=== PATIENT | male | born 1985 | race Caucasian/White ===

== ENCOUNTER 2018-08-10 20:33 | Emergency (ER) | payer SELFPAY ==
[~2018-08-10] VITALS: Ht 190.5 cm; Wt 105.6 kg
--- NOTE | 2018-08-10 22:06 | NUR ---
PT TO US
[2018-08-10] MEDS ORDERED: HYDROcodone/APAP 5/325 TABLET ONE (22:17)
--- NOTE | 2018-08-10 22:29 | NUR ---
PT MEDICATED FOR PAIN
[2018-08-10] MEDS ORDERED: HYDROcodone/APAP 5/325 TABLET PO ONE (22:30)
[2018-08-10 23:00] VITALS: BP 145/89
--- NOTE | 2018-08-10 23:17 | NUR ---
Patient given discharge instructions and they have confirmed that they understand the instructions.
== END 2018-08-10 23:21 | disposition home or self-care (01) ==
LOC: ED 22:50
DX: S82.402A Unspecified fracture of shaft of left fibula, initial encounter for closed fracture (principal); X58.XXXA Exposure to other specified factors, initial encounter; Y93.89 Activity, other specified; Y92.89 Other specified places as the place of occurrence of the external cause; Y99.8 Other external cause status
CPT/HCPCS: 29515; 99284

== ENCOUNTER 2018-08-26 20:41 | Emergency (ER) | payer SELFPAY ==
[~2018-08-26] VITALS: Ht 190.5 cm; Wt 101.1 kg
[2018-08-26 20:48] VITALS: BP 151/94
[2018-08-26] MEDS ORDERED: AZITHROMYCIN 250 MG TABLET PO ONE (21:00)
[2018-08-26] MEDS ORDERED: CEFTRIAXONE 250 MG IM ONE (21:00)
--- NOTE | 2018-08-26 21:17 | NUR ---
NOT IN LOBBY WHEN CALLED FOR ROOM.
--- NOTE | 2018-08-26 22:03 | NUR ---
PILATES INSTRUCTOR: MARIO COLLECTED AND SENT FROM TRIAGE.
[2018-08-26] MEDS ORDERED: CEFTRIAXONE 250 MG ONE (22:34)
[2018-08-26] MEDS ORDERED: AZITHROMYCIN 250 MG TABLET ONE (22:35)
== END 2018-08-26 23:21 | disposition home or self-care (01) ==
LOC: ED 22:45
DX: A74.9 Chlamydial infection, unspecified (principal); A54.09 Other gonococcal infection of lower genitourinary tract; A74.89 Other chlamydial diseases
CPT/HCPCS: 87491; 87591; 96372; 99283; J0696

== ENCOUNTER 2018-09-06 18:17 | Emergency (ER) | payer SELFPAY ==
[~2018-09-06] VITALS: Ht 190.5 cm; Wt 104.5 kg
[2018-09-06 18:22] VITALS: BP 164/110
[2018-09-06] MEDS ORDERED: AZITHROMYCIN 250 MG TABLET PO ONE (18:30)
[2018-09-06] MEDS ORDERED: CEFTRIAXONE 250 MG IM ONE (18:30)
[2018-09-06 19:19] LABS: CULTURE INDICATED? NO; MICROSCOPIC NOT IND
--- NOTE | 2018-09-06 19:23 | NUR ---
Patient/Caregiver given discharge instructions and they have confirmed that they understand the instructions. Patient ambulatory with steady gait.
== END 2018-09-06 19:24 | disposition home or self-care (01) ==
LOC: ED 19:10
DX: A56.8 Sexually transmitted chlamydial infection of other sites (principal); A54.9 Gonococcal infection, unspecified; L03.031 Cellulitis of right toe; F17.200 Nicotine dependence, unspecified, uncomplicated; I10 Essential (primary) hypertension
CPT/HCPCS: 81003; 87491; 87591; 99283

== ENCOUNTER 2019-01-08 09:33 | Emergency (ER) | payer OTHER ==
[~2019-01-08] VITALS: Ht 190.5 cm; Wt 105.0 kg
--- NOTE | 2019-01-08 09:39 | NUR ---
SEE TRIAGE NOTE. PT PLACED ON BP CUFF, PULSE OX. PT STATES HX OF HTN BUT DOESN'T TAKE MEDS. PT REPORTS OF ALCOHOL AND METH USE, LAST TAKEN BEFORE INCARCERATION 10/2018. PT COOPERATIVE WITH CARE, ERP IN TO SEE PT. GUARD AT BS.
[2019-01-08 10:19] LABS: BASOPHILS # (AUTO) 0.04 x10^3/uL (0-0.1); BASOPHILS % (AUTO) 1 % (0-1); EOSINOPHILS # (AUTO) 0.26 x10^3/uL (0-0.4); EOSINOPHILS % (AUTO) 4 % (1-7); LYMPHOCYTES # (AUTO) 2.01 x10^3/uL (1-3.4); LYMPHOCYTES % (AUTO) 31 % (22-44); MD NO; MEAN CORPUSCULAR HEMOGLOBIN 29.9 pg (27.5-34.5); MEAN CORPUSCULAR HGB CONC 33.6 g/dL (33.2-36.2); MEAN CORPUSCULAR VOLUME 88.9 fL (81-97); MEAN PLATELET VOLUME 8.7 fL (7.4-10.4); MONOCYTES # (AUTO) 0.47 x10^3/uL (0.2-0.8); MONOCYTES % (AUTO) 7 % (2-9); NEUTROPHILS # (AUTO) 3.79 x10^3/uL (1.8-6.8); NEUTROPHILS % (AUTO) 58 % (42-75); PLATELET COUNT 176 x10^3/uL (130-400); RED CELL DISTRIBUTION WIDTH 13.5 % (9.4-14.8)
[2019-01-08 10:32] LABS: ALBUMIN 3.9 g/dL (3.4-5.0)
[2019-01-08 10:35] LABS: ALANINE AMINOTRANSFERASE 206 U/L (12-78); ALKALINE PHOSPHATASE 101 U/L (45-117); BILIRUBIN,TOTAL 0.5 mg/dL (0.2-1.0); CREATININE 0.96 mg/dL (0.7-1.3); TOTAL PROTEIN 7.7 g/dL (6.4-8.2)
[2019-01-08 10:36] LABS: ANION GAP 6 mmol/L (5-15); CHLORIDE 109 mmol/L (98-107)
--- NOTE | 2019-01-08 11:22 | NUR ---
IV DRESSING APPLIED. READY FOR CT
[2019-01-08] MEDS ORDERED: OMNIPAQUE 350 MG/ML, 100ML BOTTLE ONE (11:53)
[2019-01-08 12:28] VITALS: BP 131/85
--- NOTE | 2019-01-08 12:29 | NUR ---
NEW IV PLACED IN CT. PT BACK IN ROOM. RESTING COMFORTABLE W SALES/MARKETING AT BEDSIDE
--- NOTE | 2019-01-08 13:24 | NUR ---
Patient/Caregiver given discharge instructions and they have confirmed that they understand the instructions. Patient ambulatory with steady gait.
== END 2019-01-08 13:26 | disposition home or self-care (01) ==
LOC: ED 09:51
DX: K40.91 Unilateral inguinal hernia, without obstruction or gangrene, recurrent (principal); I10 Essential (primary) hypertension
CPT/HCPCS: 36415; 74177; 80053; 83605; 85025; 99284; Q9967

== ENCOUNTER 2020-04-09 08:53 | Inpatient (IN) | payer MEDICAID ==
[~2020-04-09] VITALS: Ht 190.5 cm; Wt 103.3 kg
--- NOTE | 2020-04-09 09:46 | NUR ---
PT AMBULATORY TO ROOM FROM LOBBY, C/O RIGHT HAND PAINAND SWELLING. PT STATES HE ORIGINALY INJURED THE HAND "ON SOMEONES TOOTH" APPROX 1 MO AGO/ INCREASED SWELLING, PAIN, REDNESS FOR PAST THEE DAYS. ABCESS NOTD TO FIFTH PROX KNUCKLE. DR FRANKLIN AT BEDSIDE, PT ASSESSMENT, POC DISCUSSED AND QUESTIONS ANSWERED.
[2020-04-09] MEDS ORDERED: SODIUM CHLORIDE FLUSH 10ML SYR IVF ONE (10:00)
[2020-04-09] MEDS ORDERED: AMPICILLIN/SULBACTAM 3 GM in SODIUM CHLORIDE 0.9% 100 ML IV ONE (10:00)
[2020-04-09] MEDS ORDERED: SODIUM CHLORIDE 0.9% 1,000ML IVBOLUS ONE (10:00)
[2020-04-09] MEDS ORDERED: VANCOMYCIN PER PHARMACY MC ONE (10:00)
[2020-04-09 10:28] LABS: BASOPHILS % (AUTO) 1 % (0-1); EOSINOPHILS % (AUTO) 2 % (1-7); LYMPHOCYTES % (AUTO) 18 % (22-44); MEAN CORPUSCULAR HEMOGLOBIN 30.4 pg (27.5-34.5); MEAN CORPUSCULAR HGB CONC 33.5 g/dL (33.2-36.2); MEAN PLATELET VOLUME 8.2 fL (7.4-10.4); MONOCYTES % (AUTO) 7 % (2-9); NEUTROPHILS % (AUTO) 72 % (42-75); PLATELET COUNT 252 x10^3/uL (130-400); RED BLOOD COUNT 5.37 x10^6/uL (4.38-5.82); RED CELL DISTRIBUTION WIDTH 14.2 % (9.4-14.8)
[2020-04-09] MEDS ORDERED: VANCOMYCIN 2,400 MG in SODIUM CHLORIDE 0.9% 500 ML IV ONE (10:30)
[2020-04-09 10:37] LABS: INTERNATIONAL NORMALIZED RATIO 0.97 (0.93-1.1); PROTHROMBIN TIME 10.3 Seconds (9.6-11.5)
[2020-04-09 10:39] LABS: ALANINE AMINOTRANSFERASE 78 U/L (12-78); ALBUMIN 3.8 g/dL (3.4-5.0); ANION GAP 7 mmol/L (5-15); CALCIUM 9.2 mg/dL (8.5-10.1); CHLORIDE 105 mmol/L (98-107); CREATININE 1.08 mg/dL (0.7-1.3)
[2020-04-09 10:42] LABS: ALKALINE PHOSPHATASE 123 U/L (45-117); BILIRUBIN,TOTAL 0.5 mg/dL (0.2-1.0); MD NO; TOTAL PROTEIN 8.2 g/dL (6.4-8.2)
[2020-04-09] MEDS ORDERED: DIPH,PERTUSS(ACELL),TET VAC/PF 0.5 ML IM-VACC ONE ×2 (11:30→11:34)
[2020-04-09 11:44] LABS: HCT (SEDRATE) 48.7 % (39.2-51.8)
--- NOTE | 2020-04-09 11:56 | NUR ---
DR PUENTES AT BEDSIDE. PLAN FOR SURGERY TODAY AT 1800 DISCUSSED AND QUESTIONS ANSWERED.
[2020-04-09] MEDS ORDERED: KETOROLAC 30 MG/1 ML IM PRN (12:30)
[2020-04-09] MEDS ORDERED: LABETALOL 5MG/ML, 20ML IVPush PRN (12:30)
[2020-04-09] MEDS ORDERED: ONDANSETRON 2MG/ML, 2ML IVPush PRN (12:30)
[2020-04-09] MEDS: MULTIVITAMIN 1 TABLET PO SCH (12:30)
[2020-04-09] MEDS ORDERED: morphine SULFATE 10 MG/ML, 1ML IVPush PRN (12:30)
[2020-04-09] MEDS ORDERED: VANCOMYCIN PER PHARMACY MC PRN (12:30)
[2020-04-09] MEDS ORDERED: PROMETHAZINE 25 MG/ML, 1ML IM PRN (12:30)
[2020-04-09] MEDS ORDERED: ACETAMINOPHEN 325 MG TABLET PO PRN ×2 (12:30→16:30)
[2020-04-09] MEDS: FOLIC ACID 1 MG TABLET PO SCH (12:30)
[2020-04-09] MEDS ORDERED: THIAMINE 100MG TABLET ONE (13:29)
[2020-04-09] MEDS ORDERED: ONDANSETRON 2MG/ML, 2ML ONE ×2 (13:29→16:01)
[2020-04-09] MEDS ORDERED: PIPERACILLIN/TAZO/PMX 3.375GM 50 ML ONE (13:29)
[2020-04-09] MEDS ORDERED: HEPARIN 5,000 UNITS/ML, 1ML ONE (13:29)
[2020-04-09] MEDS ORDERED: MORPHINE SULFATE 4 MG/ML, 1ML ONE (13:29)
[2020-04-09] MEDS: HEPARIN 5,000 UNITS/ML, 1ML SQ SCH ×2 (13:33→20:30)
[2020-04-09] MEDS: SODIUM CHLORIDE 0.9% 1,000 ML IV SCH ×2 (13:39→16:53)
[2020-04-09] MEDS: PIPERACILLIN/TAZO/PMX 3.375GM 50 ML IV SCH ×2 (13:43→20:21)
[2020-04-09] MEDS: THIAMINE 100MG TABLET PO SCH (13:48)
--- NOTE | 2020-04-09 13:49 | NUR ---
PT MED NOTED FOR PAIN. IVF INFUSING W/O DIFFICULTY. PT IS NPO BUT I DID ADMIN THIAMINE PO WITH 3OML OF WATER. PT IS HEAVY DRINKER, DRINKS 1 - 1 1/2 PINTS OF HARD LIQUOR/DAY.
[2020-04-09] MEDS ORDERED: CHLORHEXIDINE 15 ML UDC ONE (15:20)
[2020-04-09] MEDS ORDERED: CHLORHEXIDINE 15 ML UDC MM ONE (15:30)
[2020-04-09] MEDS ORDERED: LACTATED RINGERS 1,000 ML IV SCH (15:30)
[2020-04-09] MEDS ORDERED: LIDOCAINE-MPF 1%, 2ML ONE (15:46)
[2020-04-09 15:48] LABS: AMPHETAMINE SCREEN, URINE Positive (Negative); BARBITURATE SCREEN, URINE Negative (Negative); BENZODIAZEPINE SCREEN, URINE Negative (Negative); CANNABINOID SCREEN, URINE Negative (Negative); COCAINE SCREEN, URINE Negative (Negative); METHADONE SCREEN, URINE Negative (Negative); OPIATE SCREEN, URINE Positive (Negative)
[2020-04-09] MEDS ORDERED: ROCURONIUM 10MG/ML,5ML ONE (16:01)
[2020-04-09] MEDS ORDERED: FENTANYL PF 250 MCG/5ML ONE (16:01)
[2020-04-09] MEDS ORDERED: SUCCINYLCHOLINE 20 MG/ML, 10ML ONE (16:01)
[2020-04-09] MEDS ORDERED: PROPOFOL 10 MG/ML, 20ML ONE (16:01)
[2020-04-09] MEDS ORDERED: DEXAMETHASONE 4 MG/ML, 1ML ONE (16:01)
[2020-04-09] MEDS ORDERED: BUPIVACAINE/PF 0.25% INFIL ONE (16:10)
[2020-04-09] MEDS ORDERED: BUPIVACAINE/PF 0.25% ONE (16:13)
[2020-04-09] MEDS ORDERED: BUPIVACAINE/PF 0.5% ONE (16:13)
[2020-04-09] MEDS ORDERED: OXYcodone 5 MG/5 ML ORAL.SOL UDC PO PRN (16:30)
[2020-04-09] MEDS ORDERED: ALBUTEROL SULFATE 2.5 MG/3 ML NPPB PRN (16:30)
[2020-04-09] MEDS ORDERED: FENTANYL PF 100 MCG/2ML IV PRN (16:30)
[2020-04-09] MEDS ORDERED: MEPERIDINE/PF 25MG/0.5ML IVPush PRN (16:30)
[2020-04-09] MEDS ORDERED: LABETALOL 5MG/ML, 20ML IV PRN (16:30)
[2020-04-09] MEDS ORDERED: LORazepam 2 MG/ML, 1ML IVPush PRN (16:30)
[2020-04-09] MEDS ORDERED: PROMETHAZINE 25 MG/ML, 1ML IVPush PRN (16:30)
[2020-04-09] MEDS ORDERED: HYDROmorphone 1 MG/ML, 1ML INJ IVPush PRN (16:30)
[2020-04-09] MEDS ORDERED: VANCOMYCIN 2,000 MG in SODIUM CHLORIDE 0.9% 500 ML IV SCH (17:00)
[2020-04-09] MEDS ORDERED: PHARMACOKINETIC MONITORING MC PRN (17:00)
[2020-04-09] MEDS ORDERED: hydrALAzine 20 MG/ML, 1ML ONE (17:03)
[2020-04-09] MEDS ORDERED: OXYcodone 5 MG/5 ML ORAL.SOL UDC ONE (17:04)
[2020-04-09] MEDS: hydrALAzine 20 MG/ML, 1ML IVPush PRN (17:07)
[2020-04-09 18:40] VITALS: BP 146/91
[2020-04-09] MEDS: OXYcodone IR 5MG TABLET PO PRN (20:59)
[2020-04-09] MEDS: NICOTINE 21 MG/24 HR PATCH.TD24 TD SCH (20:59)
[2020-04-09 23:50] VITALS: BP 152/81
[2020-04-10] MEDS: VANCOMYCIN 2,000 MG in SODIUM CHLORIDE 0.9% 500 ML IV SCH ×2 (00:04→12:31)
[2020-04-10 02:53] VITALS: BP 160/113
[2020-04-10] MEDS: hydrALAzine 20 MG/ML, 1ML IVPush PRN (02:54)
[2020-04-10] MEDS: PIPERACILLIN/TAZO/PMX 3.375GM 50 ML IV SCH ×4 (02:54→21:58)
[2020-04-10] MEDS: HEPARIN 5,000 UNITS/ML, 1ML SQ SCH ×3 (04:30→21:59)
[2020-04-10 05:11] LABS: BASOPHILS % (AUTO) 0 % (0-1); EOSINOPHILS % (AUTO) 0 % (1-7); LYMPHOCYTES % (AUTO) 9 % (22-44); MEAN CORPUSCULAR HEMOGLOBIN 30.3 pg (27.5-34.5); MEAN CORPUSCULAR HGB CONC 33.3 g/dL (33.2-36.2); MEAN PLATELET VOLUME 8.7 fL (7.4-10.4); MONOCYTES % (AUTO) 4 % (2-9); NEUTROPHILS % (AUTO) 86 % (42-75); PLATELET COUNT 272 x10^3/uL (130-400); RED BLOOD COUNT 5.35 x10^6/uL (4.38-5.82); RED CELL DISTRIBUTION WIDTH 14.7 % (9.4-14.8)
[2020-04-10 05:19] LABS: MD NO
[2020-04-10 05:21] LABS: ALANINE AMINOTRANSFERASE 63 U/L (12-78); ALBUMIN 3.1 g/dL (3.4-5.0); ANION GAP 6 mmol/L (5-15); CALCIUM 8.3 mg/dL (8.5-10.1); CHLORIDE 106 mmol/L (98-107); CREATININE 1.13 mg/dL (0.7-1.3)
[2020-04-10 05:24] LABS: ALKALINE PHOSPHATASE 113 U/L (45-117); BILIRUBIN,TOTAL 0.6 mg/dL (0.2-1.0); TOTAL PROTEIN 7.2 g/dL (6.4-8.2)
[2020-04-10 08:40] VITALS: BP 143/79
[2020-04-10] MEDS: MULTIVITAMIN 1 TABLET PO SCH (08:42)
[2020-04-10] MEDS: OXYcodone IR 5MG TABLET PO PRN ×2 (08:42→12:31)
[2020-04-10] MEDS: THIAMINE 100MG TABLET PO SCH (08:42)
[2020-04-10] MEDS: SODIUM CHLORIDE 0.9% 1,000 ML IV SCH (08:43)
[2020-04-10] MEDS: FOLIC ACID 1 MG TABLET PO SCH (08:57)
[2020-04-10] MEDS ORDERED: NICOTINE 21 MG/24 HR PATCH.TD24 TD SCH (09:00)
[2020-04-10 13:15] VITALS: BP 147/80
[2020-04-10 20:24] VITALS: BP 133/82
[2020-04-10] MEDS: NICOTINE 21 MG/24 HR PATCH.TD24 TD SCH (21:59)
[2020-04-11] MEDS: VANCOMYCIN 2,000 MG in SODIUM CHLORIDE 0.9% 500 ML IV SCH (00:36)
[2020-04-11 01:21] VITALS: BP 131/84
[2020-04-11] MEDS: PIPERACILLIN/TAZO/PMX 3.375GM 50 ML IV SCH ×4 (04:29→23:07)
[2020-04-11] MEDS: HEPARIN 5,000 UNITS/ML, 1ML SQ SCH ×3 (04:39→22:23)
[2020-04-11 05:28] LABS: ALBUMIN 2.5 g/dL (3.4-5.0); ANION GAP 5 mmol/L (5-15); CHLORIDE 108 mmol/L (98-107)
[2020-04-11 05:32] LABS: BASOPHILS % (AUTO) 1 % (0-1); EOSINOPHILS % (AUTO) 4 % (1-7); LYMPHOCYTES % (AUTO) 39 % (22-44); MEAN CORPUSCULAR HEMOGLOBIN 30.1 pg (27.5-34.5); MEAN CORPUSCULAR HGB CONC 32.7 g/dL (33.2-36.2); MEAN PLATELET VOLUME 8.3 fL (7.4-10.4); MONOCYTES % (AUTO) 6 % (2-9); NEUTROPHILS % (AUTO) 50 % (42-75); PLATELET COUNT 228 x10^3/uL (130-400); RED BLOOD COUNT 5.04 x10^6/uL (4.38-5.82); RED CELL DISTRIBUTION WIDTH 14.7 % (9.4-14.8)
[2020-04-11 05:33] LABS: ALANINE AMINOTRANSFERASE 48 U/L (12-78); ALKALINE PHOSPHATASE 83 U/L (45-117); BILIRUBIN,TOTAL 0.2 mg/dL (0.2-1.0); CREATININE 0.78 mg/dL (0.7-1.3); TOTAL PROTEIN 6.1 g/dL (6.4-8.2)
[2020-04-11 05:44] LABS: MD NO
[2020-04-11 06:19] VITALS: BP 141/89
[2020-04-11] MEDS: FOLIC ACID 1 MG TABLET PO SCH (09:24)
[2020-04-11] MEDS: THIAMINE 100MG TABLET PO SCH (09:24)
[2020-04-11] MEDS: AMLODIPINE 10 MG TAB PO SCH (09:25)
[2020-04-11] MEDS: MULTIVITAMIN 1 TABLET PO SCH (09:25)
[2020-04-11 12:35] VITALS: BP 156/81
[2020-04-11] MEDS: VANCOMYCIN 2,200 MG in SODIUM CHLORIDE 0.9% 500 ML IV SCH (15:12)
[2020-04-11 20:17] VITALS: BP 159/79
[2020-04-11] MEDS: NICOTINE 21 MG/24 HR PATCH.TD24 TD SCH (22:22)
[2020-04-12 01:55] VITALS: BP 150/96
[2020-04-12] MEDS: VANCOMYCIN 2,200 MG in SODIUM CHLORIDE 0.9% 500 ML IV SCH ×2 (03:20→15:30)
[2020-04-12] MEDS: PIPERACILLIN/TAZO/PMX 3.375GM 50 ML IV SCH (06:02)
[2020-04-12] MEDS: HEPARIN 5,000 UNITS/ML, 1ML SQ SCH ×3 (06:02→20:53)
[2020-04-12] MEDS: AMLODIPINE 10 MG TAB PO SCH (08:10)
[2020-04-12] MEDS: FOLIC ACID 1 MG TABLET PO SCH (08:11)
[2020-04-12] MEDS: MULTIVITAMIN 1 TABLET PO SCH (08:11)
[2020-04-12] MEDS: THIAMINE 100MG TABLET PO SCH (08:11)
[2020-04-12 08:33] VITALS: BP 139/82
[2020-04-12 12:52] VITALS: BP 144/89
[2020-04-12 19:38] VITALS: BP 147/99
[2020-04-12] MEDS: NICOTINE 21 MG/24 HR PATCH.TD24 TD SCH (20:54)
[2020-04-13 01:57] VITALS: BP 149/96
[2020-04-13] MEDS: VANCOMYCIN 2,200 MG in SODIUM CHLORIDE 0.9% 500 ML IV SCH ×2 (03:06→15:08)
[2020-04-13] MEDS: HEPARIN 5,000 UNITS/ML, 1ML SQ SCH ×3 (06:00→21:41)
[2020-04-13 07:44] VITALS: BP 145/91
[2020-04-13] MEDS: THIAMINE 100MG TABLET PO SCH (08:41)
[2020-04-13] MEDS: AMLODIPINE 10 MG TAB PO SCH (08:41)
[2020-04-13] MEDS: MULTIVITAMIN 1 TABLET PO SCH (08:41)
[2020-04-13] MEDS: FOLIC ACID 1 MG TABLET PO SCH (08:41)
[2020-04-13 13:15] VITALS: BP 129/85
[2020-04-13 19:21] VITALS: BP 121/74
[2020-04-13] MEDS: NICOTINE 21 MG/24 HR PATCH.TD24 TD SCH (21:40)
[2020-04-14 01:47] VITALS: BP 122/84
[2020-04-14] MEDS: VANCOMYCIN 2,200 MG in SODIUM CHLORIDE 0.9% 500 ML IV SCH ×2 (02:59→14:54)
[2020-04-14] MEDS: HEPARIN 5,000 UNITS/ML, 1ML SQ SCH ×3 (05:36→21:13)
[2020-04-14] MEDS: MULTIVITAMIN 1 TABLET PO SCH (08:03)
[2020-04-14] MEDS: AMLODIPINE 10 MG TAB PO SCH (08:03)
[2020-04-14] MEDS: THIAMINE 100MG TABLET PO SCH (08:03)
[2020-04-14] MEDS: FOLIC ACID 1 MG TABLET PO SCH (08:03)
[2020-04-14 09:35] VITALS: BP 128/73
[2020-04-14 14:08] VITALS: BP 131/83
[2020-04-14 18:45] VITALS: BP 124/77
[2020-04-14] MEDS: NICOTINE 21 MG/24 HR PATCH.TD24 TD SCH (21:14)
[2020-04-15 01:28] VITALS: BP 129/83
[2020-04-15] MEDS: VANCOMYCIN 2,200 MG in SODIUM CHLORIDE 0.9% 500 ML IV SCH ×2 (03:25→14:29)
[2020-04-15] MEDS: HEPARIN 5,000 UNITS/ML, 1ML SQ SCH ×3 (05:48→22:29)
[2020-04-15 07:44] VITALS: BP 123/82
[2020-04-15] MEDS: AMLODIPINE 10 MG TAB PO SCH (08:34)
[2020-04-15] MEDS: MULTIVITAMIN 1 TABLET PO SCH (08:34)
[2020-04-15] MEDS: FOLIC ACID 1 MG TABLET PO SCH (08:34)
[2020-04-15] MEDS: THIAMINE 100MG TABLET PO SCH (08:34)
[2020-04-15 12:51] VITALS: BP 124/79
[2020-04-15 20:05] VITALS: BP 142/91
[2020-04-15] MEDS: NICOTINE 21 MG/24 HR PATCH.TD24 TD SCH (22:28)
[2020-04-15] MEDS ORDERED: OMNIPAQUE 350 MG/ML, 100ML BOTTLE ONE (23:10)
[2020-04-16 02:07] VITALS: BP 121/74
[2020-04-16] MEDS: VANCOMYCIN 2,200 MG in SODIUM CHLORIDE 0.9% 500 ML IV SCH ×2 (03:06→14:21)
[2020-04-16] MEDS: HEPARIN 5,000 UNITS/ML, 1ML SQ SCH ×3 (05:55→22:54)
[2020-04-16 07:38] VITALS: BP 130/84
[2020-04-16] MEDS: AMLODIPINE 10 MG TAB PO SCH (08:07)
[2020-04-16] MEDS: FOLIC ACID 1 MG TABLET PO SCH (08:07)
[2020-04-16] MEDS: MULTIVITAMIN 1 TABLET PO SCH (08:07)
[2020-04-16] MEDS: THIAMINE 100MG TABLET PO SCH (08:08)
[2020-04-16 14:00] VITALS: BP 116/74
[2020-04-16 21:00] VITALS: BP 120/77
[2020-04-16] MEDS: NICOTINE 21 MG/24 HR PATCH.TD24 TD SCH (22:54)
[2020-04-17 01:19] VITALS: BP 99/61
[2020-04-17] MEDS: VANCOMYCIN 2,200 MG in SODIUM CHLORIDE 0.9% 500 ML IV SCH ×2 (02:28→14:59)
[2020-04-17] MEDS: HEPARIN 5,000 UNITS/ML, 1ML SQ SCH ×2 (06:12→14:59)
[2020-04-17 07:00] VITALS: BP 127/84
[2020-04-17 07:48] LABS: ALANINE AMINOTRANSFERASE 111 U/L (12-78); ALBUMIN 3.1 g/dL (3.4-5.0); C-REACTIVE PROTEIN, QUANT 0.04 mg/dL (0.02-0.49); CALCIUM 8.9 mg/dL (8.5-10.1); CHLORIDE 106 mmol/L (98-107); CREATININE 0.82 mg/dL (0.7-1.3)
[2020-04-17 07:51] LABS: ALKALINE PHOSPHATASE 93 U/L (45-117); BASOPHILS % (AUTO) 1 % (0-1); BILIRUBIN,TOTAL 0.3 mg/dL (0.2-1.0); EOSINOPHILS % (AUTO) 7 % (1-7); LYMPHOCYTES % (AUTO) 37 % (22-44); MEAN PLATELET VOLUME 8.4 fL (7.4-10.4); MONOCYTES % (AUTO) 8 % (2-9); NEUTROPHILS % (AUTO) 48 % (42-75); PLATELET COUNT 195 x10^3/uL (130-400); RED BLOOD COUNT 5.36 x10^6/uL (4.38-5.82); RED CELL DISTRIBUTION WIDTH 13.7 % (9.4-14.8); TOTAL PROTEIN 7.1 g/dL (6.4-8.2)
[2020-04-17 08:06] LABS: HCT (SEDRATE) 48.7 % (39.2-51.8); MD NO
[2020-04-17 08:07] LABS: ANION GAP 1 mmol/L (5-15)
[2020-04-17] MEDS: MULTIVITAMIN 1 TABLET PO SCH (09:48)
[2020-04-17] MEDS: AMLODIPINE 10 MG TAB PO SCH (09:48)
[2020-04-17] MEDS: THIAMINE 100MG TABLET PO SCH (09:48)
[2020-04-17] MEDS: FOLIC ACID 1 MG TABLET PO SCH (09:48)
[2020-04-17 13:55] VITALS: BP 138/84
[2020-04-17 20:00] VITALS: BP 120/79
[2020-04-17] MEDS: NICOTINE 21 MG/24 HR PATCH.TD24 TD SCH (21:30)
[2020-04-18 02:01] VITALS: BP 108/68
[2020-04-18] MEDS: VANCOMYCIN 2,200 MG in SODIUM CHLORIDE 0.9% 500 ML IV SCH ×2 (02:53→15:33)
[2020-04-18 08:36] VITALS: BP 114/74
[2020-04-18] MEDS: ENOXAPARIN 40 MG/0.4 ML SQ SCH (09:00)
[2020-04-18] MEDS: MULTIVITAMIN 1 TABLET PO SCH (09:16)
[2020-04-18] MEDS: THIAMINE 100MG TABLET PO SCH (09:16)
[2020-04-18] MEDS: FOLIC ACID 1 MG TABLET PO SCH (09:16)
[2020-04-18] MEDS: AMLODIPINE 10 MG TAB PO SCH (09:16)
[2020-04-18 13:34] VITALS: BP 134/78
[2020-04-18 20:18] VITALS: BP 138/92
[2020-04-18] MEDS: NICOTINE 21 MG/24 HR PATCH.TD24 TD SCH (21:00)
[2020-04-19 02:11] VITALS: BP 123/81
[2020-04-19] MEDS: VANCOMYCIN 2,200 MG in SODIUM CHLORIDE 0.9% 500 ML IV SCH (03:21)
[2020-04-19 07:45] VITALS: BP 148/83
[2020-04-19] MEDS: FOLIC ACID 1 MG TABLET PO SCH (10:26)
[2020-04-19] MEDS: AMLODIPINE 10 MG TAB PO SCH (10:26)
[2020-04-19] MEDS: THIAMINE 100MG TABLET PO SCH (10:26)
[2020-04-19] MEDS: MULTIVITAMIN 1 TABLET PO SCH (10:26)
[2020-04-19] MEDS: ENOXAPARIN 40 MG/0.4 ML SQ SCH (10:30)
[2020-04-19 15:20] VITALS: BP 144/78
[2020-04-19] MEDS: VANCOMYCIN 2,300 MG in SODIUM CHLORIDE 0.9% 500 ML IV SCH (16:06)
[2020-04-19 19:57] VITALS: BP 139/83
[2020-04-19] MEDS: NICOTINE 21 MG/24 HR PATCH.TD24 TD SCH (21:00)
[2020-04-19] MEDS ORDERED: CATHFLO-ALTEPLASE 2 MG/2 ML CATHFLUSH ONE (22:30)
[2020-04-20 02:13] VITALS: BP 130/88
[2020-04-20] MEDS: VANCOMYCIN 2,300 MG in SODIUM CHLORIDE 0.9% 500 ML IV SCH ×2 (03:31→15:26)
[2020-04-20 08:31] VITALS: BP 123/78
[2020-04-20] MEDS: FOLIC ACID 1 MG TABLET PO SCH (09:00)
[2020-04-20] MEDS: MULTIVITAMIN 1 TABLET PO SCH (09:00)
[2020-04-20] MEDS: ENOXAPARIN 40 MG/0.4 ML SQ SCH (09:00)
[2020-04-20] MEDS: AMLODIPINE 10 MG TAB PO SCH (09:00)
[2020-04-20] MEDS: THIAMINE 100MG TABLET PO SCH (09:00)
[2020-04-20 13:48] VITALS: BP 128/72
[2020-04-20] MEDS: NICOTINE 21 MG/24 HR PATCH.TD24 TD SCH (21:00)
[2020-04-20 21:11] VITALS: BP 123/74
[2020-04-21 02:40] VITALS: BP 130/80
[2020-04-21] MEDS: VANCOMYCIN 2,300 MG in SODIUM CHLORIDE 0.9% 500 ML IV SCH ×2 (02:51→15:17)
[2020-04-21 06:16] LABS: CREATININE 0.99 mg/dL (0.7-1.3)
[2020-04-21 08:42] VITALS: BP 139/78
[2020-04-21] MEDS: ENOXAPARIN 40 MG/0.4 ML SQ SCH (09:00)
[2020-04-21] MEDS: THIAMINE 100MG TABLET PO SCH (09:30)
[2020-04-21] MEDS: FOLIC ACID 1 MG TABLET PO SCH (09:30)
[2020-04-21] MEDS: AMLODIPINE 10 MG TAB PO SCH (09:30)
[2020-04-21] MEDS: MULTIVITAMIN 1 TABLET PO SCH (09:30)
[2020-04-21 12:31] VITALS: BP 125/72
[2020-04-21] MEDS: NICOTINE 21 MG/24 HR PATCH.TD24 TD SCH (21:00)
[2020-04-21 21:07] VITALS: BP 121/73
[2020-04-22 03:08] VITALS: BP 136/70
[2020-04-22] MEDS: VANCOMYCIN 2,400 MG in SODIUM CHLORIDE 0.9% 500 ML IV SCH ×2 (03:32→14:46)
[2020-04-22 06:05] LABS: ANION GAP 2 mmol/L (5-15); CALCIUM 8.7 mg/dL (8.5-10.1); CHLORIDE 106 mmol/L (98-107); CREATININE 0.87 mg/dL (0.7-1.3)
[2020-04-22 08:32] VITALS: BP 108/69
[2020-04-22] MEDS: FOLIC ACID 1 MG TABLET PO SCH (08:32)
[2020-04-22] MEDS: ENOXAPARIN 40 MG/0.4 ML SQ SCH (08:32)
[2020-04-22] MEDS: THIAMINE 100MG TABLET PO SCH (08:32)
[2020-04-22] MEDS: MULTIVITAMIN 1 TABLET PO SCH (08:32)
[2020-04-22] MEDS: AMLODIPINE 10 MG TAB PO SCH (08:32)
[2020-04-22] MEDS ORDERED: NALOXONE 1 MG/ML, 2ML ONE (12:10)
[2020-04-22 13:11] VITALS: BP 128/82
[2020-04-22 20:24] VITALS: BP 146/81
[2020-04-22] MEDS: NICOTINE 21 MG/24 HR PATCH.TD24 TD SCH (21:00)
[2020-04-22] MEDS ORDERED: NALOXONE 0.4 MG/ML, 1ML ONE (23:21)
[2020-04-22] MEDS ORDERED: NALOXONE 0.4 MG/ML, 1ML IVPush PRN (23:23)
[2020-04-22 23:55] VITALS: BP 147/95
[2020-04-23 00:09] VITALS: BP 126/89
[2020-04-23 00:30] LABS: AMPHETAMINE SCREEN, URINE Negative (Negative); BARBITURATE SCREEN, URINE Negative (Negative); BENZODIAZEPINE SCREEN, URINE Negative (Negative); CANNABINOID SCREEN, URINE Negative (Negative); COCAINE SCREEN, URINE Negative (Negative); METHADONE SCREEN, URINE Negative (Negative); OPIATE SCREEN, URINE Positive (Negative)
[2020-04-23 01:11] VITALS: BP 112/66
[2020-04-23 07:45] VITALS: BP 128/76
[2020-04-23] MEDS: FOLIC ACID 1 MG TABLET PO SCH (10:28)
[2020-04-23] MEDS: ENOXAPARIN 40 MG/0.4 ML SQ SCH (10:28)
[2020-04-23] MEDS: AMLODIPINE 10 MG TAB PO SCH (10:28)
[2020-04-23] MEDS: THIAMINE 100MG TABLET PO SCH (10:28)
[2020-04-23] MEDS: MULTIVITAMIN 1 TABLET PO SCH (10:28)
[2020-04-23] MEDS: VANCOMYCIN 2,400 MG in SODIUM CHLORIDE 0.9% 500 ML IV SCH ×2 (11:38→23:50)
[2020-04-23 14:37] VITALS: BP 118/77
[2020-04-23 20:50] VITALS: BP 116/80
[2020-04-23] MEDS: NICOTINE 21 MG/24 HR PATCH.TD24 TD SCH (22:07)
[2020-04-24 01:16] VITALS: BP 113/71
[2020-04-24 06:59] LABS: MEAN CORPUSCULAR HEMOGLOBIN 29.7 pg (27.5-34.5); MEAN CORPUSCULAR HGB CONC 33.3 g/dL (33.2-36.2); MEAN PLATELET VOLUME 8.1 fL (7.4-10.4); PLATELET COUNT 197 x10^3/uL (130-400); RED BLOOD COUNT 5.33 x10^6/uL (4.38-5.82); RED CELL DISTRIBUTION WIDTH 13.4 % (9.4-14.8)
[2020-04-24 07:10] LABS: HCT (SEDRATE) 47.5 % (39.2-51.8)
[2020-04-24 07:11] LABS: ALANINE AMINOTRANSFERASE 118 U/L (12-78); ALBUMIN 3.1 g/dL (3.4-5.0); ANION GAP 4 mmol/L (5-15); CALCIUM 8.9 mg/dL (8.5-10.1); CHLORIDE 104 mmol/L (98-107); CREATININE 0.89 mg/dL (0.7-1.3)
[2020-04-24 07:13] LABS: ALKALINE PHOSPHATASE 98 U/L (45-117); BILIRUBIN,TOTAL 0.5 mg/dL (0.2-1.0); TOTAL PROTEIN 7.1 g/dL (6.4-8.2)
[2020-04-24 07:23] LABS: MD YES
[2020-04-24 07:25] LABS: <PLATELET ESTIMATE> ADEQUATE; <PLT MORPHOLOGY> NORMAL PLT MORPH; <RBC MORPHOLOGY> NORMAL; BASOS#(MANUAL) 0.11 x10^3/uL (0-0.1); BASOS% (MANUAL) 2 % (0-1); EOS#(MANUAL) 0.37 x10^3/uL (0.0-0.4); EOS% (MANUAL) 7 % (1-7); LYMPH#(MANUAL) 2.07 x10^3/uL (1-3.4); LYMPHS% (MANUAL) 39 % (22-44); MONOS#(MANUAL) 0.53 x10^3/uL (0.3-2.7); MONOS% (MANUAL) 10 % (2-9); SEG#(MANUAL) 2.23 x10^3/uL (1.8-6.8); SEGS% (MANUAL) 42 % (42-75)
[2020-04-24 08:17] VITALS: BP 110/72
[2020-04-24] MEDS: ENOXAPARIN 40 MG/0.4 ML SQ SCH (08:39)
[2020-04-24] MEDS: FOLIC ACID 1 MG TABLET PO SCH (08:39)
[2020-04-24] MEDS: THIAMINE 100MG TABLET PO SCH (08:39)
[2020-04-24] MEDS: AMLODIPINE 10 MG TAB PO SCH (08:39)
[2020-04-24] MEDS: MULTIVITAMIN 1 TABLET PO SCH (08:39)
[2020-04-24] MEDS: VANCOMYCIN 2,400 MG in SODIUM CHLORIDE 0.9% 500 ML IV SCH ×2 (10:55→23:53)
[2020-04-24 14:54] VITALS: BP 119/66
[2020-04-24 20:15] VITALS: BP 104/65
[2020-04-24] MEDS: NICOTINE 21 MG/24 HR PATCH.TD24 TD SCH (21:59)
[2020-04-25 01:43] VITALS: BP 119/72
[2020-04-25 07:58] VITALS: BP 136/84
[2020-04-25] MEDS: FOLIC ACID 1 MG TABLET PO SCH (08:19)
[2020-04-25] MEDS: MULTIVITAMIN 1 TABLET PO SCH (08:19)
[2020-04-25] MEDS: ENOXAPARIN 40 MG/0.4 ML SQ SCH (08:19)
[2020-04-25] MEDS: AMLODIPINE 10 MG TAB PO SCH (08:19)
[2020-04-25] MEDS: THIAMINE 100MG TABLET PO SCH (08:19)
[2020-04-25] MEDS: VANCOMYCIN 2,400 MG in SODIUM CHLORIDE 0.9% 500 ML IV SCH ×2 (10:54→22:37)
[2020-04-25 15:33] VITALS: BP 127/82
[2020-04-25] MEDS: NICOTINE 21 MG/24 HR PATCH.TD24 TD SCH (20:10)
[2020-04-26 02:01] VITALS: BP 109/68
[2020-04-26 06:13] VITALS: BP 124/74
[2020-04-26] MEDS: FOLIC ACID 1 MG TABLET PO SCH (08:17)
[2020-04-26] MEDS: AMLODIPINE 10 MG TAB PO SCH (08:17)
[2020-04-26] MEDS: THIAMINE 100MG TABLET PO SCH (08:17)
[2020-04-26] MEDS: ENOXAPARIN 40 MG/0.4 ML SQ SCH (08:18)
[2020-04-26] MEDS: MULTIVITAMIN 1 TABLET PO SCH (08:22)
[2020-04-26] MEDS ORDERED: BACITRACIN OINT 500U/GM, 28GM TP SCH (09:00)
[2020-04-26] MEDS: VANCOMYCIN 2,400 MG in SODIUM CHLORIDE 0.9% 500 ML IV SCH ×2 (10:58→23:05)
[2020-04-26 14:03] VITALS: BP 106/64
[2020-04-26 19:07] VITALS: BP 127/84
[2020-04-26] MEDS: NICOTINE 21 MG/24 HR PATCH.TD24 TD SCH (21:00)
== END 2020-04-27 00:15 | disposition left against medical advice (07) | DRG 316 ==
LOC: ED 10:04 → EDIP 11:07 → 4NE 18:23
PROVIDERS: ADMIT Internal Medicine; ATTEND Hospitalist
PROC: 0R9U0ZZ Drainage of Right Metacarpophalangeal Joint, Open Approach (ICD-10-PCS; 2020-04-09)
PROC: 02HV33Z Insertion of Infusion Device into Superior Vena Cava, Percutaneous Approach (ICD-10-PCS; principal; 2020-04-12)
PROC: B548ZZA Ultrasonography of Superior Vena Cava, Guidance (ICD-10-PCS; 2020-04-12)
DX: M86.9 Osteomyelitis, unspecified (principal); L02.511 Cutaneous abscess of right hand; L03.011 Cellulitis of right finger; L03.113 Cellulitis of right upper limb; M00.9 Pyogenic arthritis, unspecified; M65.9 Synovitis and tenosynovitis, unspecified; M84.40XA Pathological fracture, unspecified site, initial encounter for fracture; Z20.828 Contact with and (suspected) exposure to other viral communicable diseases; F10.20 Alcohol dependence, uncomplicated; F15.90 Other stimulant use, unspecified, uncomplicated; F17.210 Nicotine dependence, cigarettes, uncomplicated; F19.10 Other psychoactive substance abuse, uncomplicated; I10 Essential (primary) hypertension; B19.20 Unspecified viral hepatitis C without hepatic coma; B95.62 Methicillin resistant Staphylococcus aureus infection as the cause of diseases classified elsewhere; E43 Unspecified severe protein-calorie malnutrition; Z59.0 Homelessness; Z86.14 Personal history of Methicillin resistant Staphylococcus aureus infection; Z79.899 Other long term (current) drug therapy; Z79.891 Long term (current) use of opiate analgesic; Z68.28 Body mass index [BMI] 28.0-28.9, adult
CPT/HCPCS: 36415; 36573; 74170; 80048; 80053; 80074; 80202; 80307; 80356; 82565; 83036; 83605; 85025; 85610; 85651; 86140; 86592; 87015; 87040; 87070; 87075; 87077; 87102; 87116; 87186; 87205; 87206; 87521; 87635; 87806; 88305; 90471; 90715; 96361; 96365; 96375; 99285; G0378; J0295; J1100; J1644; J1650; J2310; J2405; J2543; J2704; J2997; J3010; J3370; Q9967; C1751; G0475; G0480; J0330; J0360; J7030; J7040; J7120

== ENCOUNTER 2020-12-10 02:47 | Emergency (ER) | payer MEDICAID ==
[~2020-12-10] VITALS: Ht 190.5 cm; Wt 107.1 kg
--- NOTE | 2020-12-10 02:51 | NUR ---
NOT IN LOBBY
--- NOTE | 2020-12-10 03:18 | NUR ---
HERNIA SURGERY 2 YEARS AGO BUT "LATELY THE LEFT SIDE HAS BEEN POPPING OUT A LITTLE BIT MORE AND HAS BEEN SORE" ALSO C/O STD EXPOSURE.
[2020-12-10] MEDS ORDERED: DOXYCYCLINE 100MG TABLET PO ONE (04:00)
[2020-12-10] MEDS ORDERED: AZITHROMYCIN 500 MG TABLET PO ONE (04:00)
[2020-12-10] MEDS ORDERED: CEFTRIAXONE 1,000 MG IM ONE (04:00)
[2020-12-10] MEDS ORDERED: AZITHROMYCIN 250 MG TABLET ONE (04:04)
[2020-12-10] MEDS ORDERED: CEFTRIAXONE 1,000 MG ONE (04:04)
[2020-12-10 04:21] VITALS: BP 142/76
--- NOTE | 2020-12-10 04:21 | NUR ---
Patient given discharge instructions and they have confirmed that they understand the instructions. Patient ambulatory with steady gait. NAD, all questions answered appropriately, denies additional needs at this time. No personal belongings left in room after discharge.
[2020-12-10] MEDS ORDERED: DOXYCYCLINE 100MG TABLET ONE (04:51)
== END 2020-12-10 04:55 | disposition home or self-care (01) ==
LOC: ED 03:00
DX: A57 Chancroid (principal); N50.819 Testicular pain, unspecified; I10 Essential (primary) hypertension; F17.210 Nicotine dependence, cigarettes, uncomplicated; Z20.2 Contact with and (suspected) exposure to infections with a predominantly sexual mode of transmission
CPT/HCPCS: 36415; 86592; 86780; 96372; 99283; 99406; J0696